=== PATIENT | female | born 1965 | race Caucasian/White ===

== ENCOUNTER 2018-10-05 19:23 | Emergency (ER) | payer MEDICAID ==
[~2018-10-05] VITALS: Ht 165.1 cm; Wt 41.0 kg
[~2018-10-05 19:23] MED LIST: CLON-528 PO
[2018-10-05 19:40] VITALS: BP 142/95
[2018-10-05] MEDS ORDERED: HYDROcodone/acetaminophen 10/325mg tab PO STA (19:45)
== END 2018-10-05 21:24 | disposition home or self-care (01) ==
LOC: ER 19:23
DX: S52.592A Other fractures of lower end of left radius, initial encounter for closed fracture (principal); M25.511 Pain in right shoulder; Z79.899 Other long term (current) drug therapy; Z98.890 Other specified postprocedural states; W18.39XA Other fall on same level, initial encounter; Y93.89 Activity, other specified; Y92.89 Other specified places as the place of occurrence of the external cause; Y99.8 Other external cause status
CPT/HCPCS: 29125; 73030; 73110; 99283

== ENCOUNTER 2018-10-26 15:06 | Outpatient (CLI) | payer MEDICAID | END 2018-10-26 16:30 | disposition home or self-care (01) | LOC: ORTHO 15:06 | PROVIDERS: ATTEND Orthopaedic Surgery | DX: S52.591D Other fractures of lower end of right radius, subsequent encounter for closed fracture with routine healing (principal); S42.292D Other displaced fracture of upper end of left humerus, subsequent encounter for fracture with routine healing; W01.0XXD Fall on same level from slipping, tripping and stumbling without subsequent striking against object, subsequent encounter | CPT/HCPCS: 73030; 73110; G0463 ==

== ENCOUNTER 2019-08-02 15:15 | Emergency (ER) | payer MEDICAID, OTHER ==
[~2019-08-02] VITALS: Ht 165.1 cm; Wt 43.0 kg
[2019-08-02 15:37] VITALS: BP 153/93
== END 2019-08-02 16:29 | disposition left against medical advice (07) ==
LOC: ER 15:16
DX: L08.9 Local infection of the skin and subcutaneous tissue, unspecified (principal); Z53.21 Procedure and treatment not carried out due to patient leaving prior to being seen by health care provider

== ENCOUNTER 2021-08-15 16:19 | Emergency (ER) | payer MEDICAID, OTHER | END 2021-08-15 19:26 | disposition left against medical advice (07) | LOC: ER 16:19 | DX: R07.81 Pleurodynia (principal); Z53.21 Procedure and treatment not carried out due to patient leaving prior to being seen by health care provider ==

== ENCOUNTER 2024-09-07 19:47 | Emergency (ER) | payer MEDICAID ==
[~2024-09-07] VITALS: Ht 165.1 cm; Wt 47.4 kg
[~2024-09-07 19:47] MED LIST changes: -CLON-528 PO; +CLON-850 PO
[2024-09-07 20:41] LABS: MEAN PLATELET VOLUME 6.5 FL (7.4-10.4); RED CELL DISTRIBUTION WIDTH 15.4 % (11.5-14.5)
[2024-09-07 20:59] LABS: CREATININE 0.96 MG/DL (0.40-0.90); TOTAL CARBON DIOXIDE 26.0 MMOL/L (24-32); eCRCL 46 ML/MIN; eGFR 59 ML/MIN
[2024-09-07] MEDS: normal saline 1000ML IV soln IVB ONE (21:07)
[2024-09-07] MEDS: ondansetron/PF 4mg/2ml inj IV ONE (21:08)
[2024-09-07 21:15] LABS: PLATELET ESTIMATE NORMAL
[2024-09-07 21:45] LABS: LEUKOCYTE ESTERASE ,URINE NEGATIVE (Neg); NITRITES, URINE NEGATIVE (Neg); OCCULT BLOOD,URINE NEGATIVE (Neg)
[2024-09-07 21:46] LABS: UA COLLECTION TYPE NON-SPECIFIED; URINE HCG NEGATIVE (NEG)
[2024-09-07 22:30] VITALS: BP 143/95; PULSE 73; RESP 12; TEMP 97.5; O2SAT 98
--- NOTE | 2024-09-07 22:31 | Physician Documentation ---
History of Present Illness ~ Chief Complaint: Vomiting Stated Complaint: COUGHING Time Seen by MD: 22:15 Primary Medical Doctor: emmanuel Mode of Arrival: POV HPI Patient presents to the emergency room for evaluation of chronic cough and vomiting. Patient has been having these symptoms for two months. She states she gets in coughing fits follow up by vomiting. This can happen upon wakening and also disturbs her sleep. Endorses mild history of reflux. She states she does have a primary care doctor but that has not seek his advice as she feels he is useless. No fevers Medication Reconciliation Allergies: Coded Allergies: Sulfa (Sulfonamide Antibiotics) (Verified Allergy, Unknown, 09/07/24) Scheduled Clonazepam (Klonopin), 0.5 MG PO HS, (Reported) Past Medical History Past Medical History: No Pertinent History Past Surgical History: orthopedic surgeries Lives In: Home Review of Systems ROS All review of systems negative except as per HPI Physical Exam Vital Signs: Temperature: 97.5, Source: Temporal, Heart Rate: 95, Respiratory Rate: 14, BP: 141/81, Pulse Oximetry: 99, Weight: 47.400 Oxygen Flow Rate: 0 Physical Exam General: Patient is awake, alert, oriented x4 in no acute distress Head: Normocephalic and atraumatic. Eyes: Conjunctival normal. EOMI. PERRL. ENT: Mucous membranes moist. Neck: Supple, trachea is midline. Chest: Clear to auscultation bilaterally without rales, rhonchi, or wheezes. There is no accessory muscle use or retractions. Cardiac: RRR without murmurs, gallops, or rubs. Abd: Soft, nondistended, nontender, with normoactive bowel sounds. No guarding, rebound, or rigidity. Progress Results/Orders Results/Orders Orders - JOHN KINNEY MD Straight Cath For Urine Sample (09/07/24 20:27) Completed Orders - JOHN KINNEY MD Ondansetron Inj. (Zofran 4mg/2ml Vial) (09/07/24 20:30) Normal Saline 1000ml (0.9% Sodium Chlori (09/07/24 20:30) Urinalysis, Cult If Indicated (09/07/24 20:27) Hcg, Ur Ql (09/07/24 20:27) Cbc/Diff (09/07/24 20:27) BMP (09/07/24 20:27) Lipase (09/07/24 20:27) CMP (09/07/24 20:27) Medications Received in ER Medications (Trade) Dose Ordered Sig/[place] Route PRN Reason Start Time Stop Time Status Last Admin Dose Admin (Zofran 4mg/2ml vial) 4 mg ONCE ONCE IV 09/07/24 20:30 09/07/24 20:31 DC 09/07/24 21:08 4 MG (0.9% sodium chloride (NS) 1000ml IV soln) 1,000 ml ONCE ONCE IVB 09/07/24 20:30 09/07/24 20:31 DC 09/07/24 21:07 1,000 ML Vital Signs 09/07/24 09/07/24 09/07/24 09/07/24 20:15 22:26 22:29 22:30 Temp 97.5 97.5 Pulse 95 87 73 Resp 16 14 16 12 B/P (MAP) 141/81 143/95 (111) 143/95 (111) Pulse Ox 99 98 98 O2 Flow Rate 0 0 0 Laboratory Tests Test 09/07/24 20:34 09/07/24 21:18 White Blood Count 5.2 Red Blood Count 3.23 L Hemoglobin 12.5 Hematocrit 36.3 Mean Corpuscular Volume 112.1 H Mean Corpuscular Hemoglobin 38.7 H Mean Corpuscular Hemoglobin Concent 34.5 Red Cell Distribution Width 15.4 H Platelet Count 305 Mean Platelet Volume 6.5 L Neutrophils (%) (Auto) 49.3 Lymphocytes (%) (Auto) 38.1 Monocytes (%) (Auto) 10.7 Eosinophils (%) (Auto) 1.1 Basophils (%) (Auto) 0.8 Neutrophils # (Auto) 2.6 Lymphocytes # (Auto) 2.0 Monocytes # (Auto) 0.6 Eosinophils # (Auto) 0.1 Basophils # (Auto) 0.0 CBC Comment Platelet Estimate Normal Red Blood Cell Morphology Perf Basophilic Stippling Macrocytosis 2+ Sodium Level 136 Potassium Level 3.9 Chloride Level 102 Carbon Dioxide Level 26.0 Anion Gap 8 Blood Urea Nitrogen 12 Creatinine 0.96 H Estimated GFR/1.73 m2 59 BUN/Creatinine Ratio 12.5 Glucose Level 105 H Calcium Level 8.7 Total Bilirubin 0.3 Aspartate Amino Transf (AST/SGOT) 46 H Alanine Aminotransferase (ALT/SGPT) 34 Alkaline Phosphatase 122 H Total Protein 6.6 Albumin 3.3 L Globulin 3.3 Albumin/Globulin Ratio 1.0 L Lipase 25 Chemistry Comments Urine Specimen Description Non-specified Urine Color Yellow Urine Clarity Clear Urine pH 6.0 Urine Specific [place] 1.025 Urine Protein Negative Urine Glucose (UA) Negative Urine Ketones Trace H Urine Occult Blood Negative Urine Nitrite Negative Urine Bilirubin Negative Urine Urobilinogen 1.0 Urine Leukocyte Esterase Negative Urine Culture Indicated Not ind Volume Urine Centrifuged 10 ml Urine HCG, Qualitative Negative Urine Comment Medical Decision Making Findings Patient presents to the emergency room with chronic cough with a post-tussive vomiting. Differentials include but are not limited to reflux, lung cancer, viral syndrome, pneumonia, CHF therefore labs ordered which were reassuring. While awaiting for chest x-ray patient eloped. Departure Disposition: 07 LEFT AWOL/ELOPED Impression: Primary Impression: Post-tussive vomiting Additional Impression: Chronic cough Condition: Fair Referrals: NO PRIMARY CARE PROVIDER (PCP) Signature Scribe Signature: No scribe Attestation: The note accurately reflects work and decisions made by me.John Kinney MD 09/08/24 01:18 JOHN KINNEY MD Sep 07, 2024 22:31
== END 2024-09-07 22:43 | disposition left against medical advice (07) ==
LOC: ER 19:48
DX: R11.10 Vomiting, unspecified (principal); G89.29 Other chronic pain; R05.9 Cough, unspecified; Z88.2 Allergy status to sulfonamides; Z79.899 Other long term (current) drug therapy
CPT/HCPCS: 36415; 80053; 81003; 81025; 83690; 85008; 85025; 96361; 96374; 99283; J2405; J7030